=== PATIENT | female | born 1995 | race American Indian/Alaskan Native ===

== ENCOUNTER 2021-06-29 16:16 | Emergency (ER) | payer MEDICAID ==
[~2021-06-29] VITALS: Ht 157.5 cm; Wt 70.4 kg
[2021-06-29] MEDS ORDERED: METOPROLOL SUC100 MG PO (16:48)
[2021-06-29] MEDS ORDERED: HYDROXYZINE HCL25 MG PO (16:49)
[2021-06-29] MEDS ORDERED: ONDANSETRON ODT8 MG PO (19:09)
[2021-06-29] MEDS ORDERED: CHLORDIAZEPOXID25 MG PO (19:09)
--- OUTSIDE RECORDS SUMMARY | 2021-06-29 19:32 | XMS ---
PreManage Notification: AZAM PATEL [employer] Operator Events No recent Security Events currently on file CRITERIA MET - [facility] - 2 Visits in 30 Days CARE PROVIDERS ANKUSH MOHAN [facility] Current PHONE: [phone] Kurt has no Care Guidelines for this patient. E.Estefani VISIT COUNT (12 MO.) 3 Belinda Watts Lida [address] [place] [address] TOTAL 7 NOTE: Visits indicate total known visits. ED/UCC VISIT TRACKING (12 MO.) 06/29/2021 16:17 ASHISH Estrada TYPE: Emergency COMPLAINT: - ALCOHOL WITHDRAWLS, LIGHT HEADED 06/07/2021 00:02 [facility] AIMEE TYPE: Emergency COMPLAINT: - BRY ABD PELV 06/06/2021 22:20 [facility] AIMEE TYPE: Emergency DIAGNOSES: - Acute pancreatitis without necrosis or infection, unspecified - Abdominal Pain - Abdmonial Pain; Emesis 01/22/2021 04:24 [facility] ANKITA YU TYPE: Emergency 11/24/2020 15:51 Belinda YU TYPE: Emergency COMPLAINT: - SOB 10/14/2020 16:59 Belinda YU TYPE: Emergency COMPLAINT: - ABD PAIN 09/30/2020 07:55 Belinda YU TYPE: Emergency COMPLAINT: - WITHDRAWAL INPATIENT VISIT TRACKING (12 MO.) 11/24/2020 15:51 Belinda YU TYPE: Inpatient COMPLAINT: - PANCREATITIS 10/14/2020 16:59 Belinda YU TYPE: Inpatient COMPLAINT: - ACUTE PANCREATITIS/ALCOHOL ABUSE [id number]
== END 2021-06-29 19:24 | disposition home or self-care (01) ==
LOC: ED 16:16
DX: F10.139 Alcohol abuse with withdrawal, unspecified (principal); I10 Essential (primary) hypertension; Z79.899 Other long term (current) drug therapy
CPT/HCPCS: 36415; 80053; 83690; 85025; 99284; J7030